=== PATIENT | male | born 1970 | race Caucasian/White ===

== ENCOUNTER 2017-07-30 18:49 | Observation (INO) | payer SELFPAY ==
[~2017-07-30] VITALS: Ht 180.3 cm; Wt 132.0 kg
[2017-07-30 18:49] VITALS: BP 174/102; PULSE 105; RESP 20; TEMP 99; O2SAT 96
[2017-07-30] MEDS ORDERED: SODIUM CHLOR 0.9% 1000 ML INJ 1,000 ML IV SCH (20:43)
[2017-07-30] MEDS ORDERED: KETOROLAC TROMETHAMINE 30 MG/ML (IVP) VIAL IV PUSH ONE (20:45)
[2017-07-30] MEDS ORDERED: VANCOMYCIN INJ 1,000 MG in SODIUM CHLOR 0.9% 250 ML INJ 250 ML IV ONE (20:45)
[2017-07-30] MEDS ORDERED: TETANUS/DIPHTHERIA TOXOID ADULT 0.5 ML VIAL IM ONE (20:45)
[2017-07-30 21:00] VITALS: BP 138/78; PULSE 92; RESP 20; O2SAT 93
--- NOTE | 2017-07-30 21:36 | PD ---
HPI Chief Complaint: Skin Problem Time Seen by Provider: 21:32 Travel History International Travel<30 days: No Contact w/Intl Traveler<30days: No Traveled to known affect area: No History of Present Illness HPI 46-year-old male that presents to the ED for evaluation of left arm infection. Patient states that he has a history of IV drug abuse and last used about a week ago. Per patient he does not believe that this is the cause of it. Per patient he was messing with a scab that he had on his elbow and he noted the swelling symptoms. He did not inject in that arm. He last injected eyes. He states having some burning sensation to the arm. He does have a history of MRSA. He denies any chest pain or shortness of breath. Some subjective fevers and chills. No sweats. Patient does have a history of diabetes and states that his blood sugar has been elevated. He usually takes metformin. He has no allergies to medication. Hasn't seen anybody for this. Per patient pain is 5 out of 10. Mainly to the left elbow. Patient concerned about infection. Able to move the elbow completely. No numbness, tilling, weakness. Going on for about 7 days. PFSH Past Medical History Diabetes: Yes Patient Takes Glucophage: No Tetanus Vaccination: < 5 Years Influenza Vaccination: Yes Past Surgical History Surgical History: No Previous Surgery Social History Alcohol Use: No Tobacco Use: Yes (2 PPD) Substance Use: No Allergies-Medications (Allergen,Severity, Reaction): Coded Allergies: No Known Allergies (Unverified , 07/30/17) Review of Systems Except as stated in HPI: all other systems reviewed are Neg Physical Exam Narrative GENERAL: SKIN: Warm and dry. HEAD: Atraumatic. Normocephalic. EYES: Pupils equal and round. No scleral icterus. No injection or drainage. ENT: No nasal bleeding or discharge. Mucous membranes pink and moist. Tongue is midline. No uvula deviation. NECK: Trachea midline. No JVD. CARDIOVASCULAR: Regular rate and rhythm. No murmurs, S3, S4. RESPIRATORY: No accessory muscle use. Clear to auscultation. Breath sounds equal bilaterally. GASTROINTESTINAL: Abdomen soft, non-tender, nondistended. Hepatic and splenic margins not palpable. MUSCULOSKELETAL: Extremities without clubbing, cyanosis, or edema. No obvious deformities. Full range of motion of the upper and lower extremities bilaterally. Patient does have an erythematous area of the skin on the medial aspect of the left elbow. Erythema noted. Most of the mid forearm. Also going up into the biceps but minimal in this area. 2+ pulses bilaterally. Neurovascular intact. Warm to the touch. No obvious lymphadenopathy. NEUROLOGICAL: Awake and alert. No obvious cranial nerve deficits. Motor grossly within normal limits. Five out of 5 muscle strength in the arms and legs. Normal speech. PSYCHIATRIC: Appropriate mood and affect; insight and judgment normal. Data Data Last Documented VS Vital Signs Date Time Temp Pulse Resp B/P (MAP) Pulse Ox O2 Delivery O2 Flow Rate FiO2 07/30/17 21:00 92 20 138/78 (98) 93 Room Air 07/30/17 18:49 99.0 Orders Orders Complete Blood Count With Diff (07/30/17 20:37) Basic Metabolic Panel (Bmp) (07/30/17 20:37) Blood Culture (07/30/17 20:37) C-Reactive Protein (Crp) (07/30/17 20:37) Magnesium (Mg) (07/30/17 20:37) Iv Access Insert/Monitor (07/30/17 20:37) Vancomycin Inj (Vancomycin Inj) (07/30/17 20:45) Vascular Access Team Consult/P PRN (07/30/17 20:37) Vascular Poc Ultrasound (07/30/17 ) Elbow, Complete (4 Vws) (07/30/17 ) Ketorolac Inj (Toradol Inj) (07/30/17 20:45) Sodium Chlor 0.9% 1000 Ml Inj (Ns 1000 M (07/30/17 20:43) Tetanus/Diphtheria Tox Adult (Tetanus/Di (07/30/17 20:45) Piperacil-Tazo 3.375 Gm Premix (Zosyn 3. (07/30/17 22:30) Admit Order (Ed Use Only) (07/30/17 22:30) Place In Observation (07/30/17 ) Vital Signs (Adult) Q4H (07/30/17 22:28) Activity Oob Ad Michelel (07/30/17 22:28) Bedside Glucose JACINDA.CSUGAR (07/30/17 22:28) Diet Regular Basic (07/31/17 Breakfast) Sodium Chloride 0.9% Flush (Ns Flush) (07/30/17 22:30) Sodium Chloride 0.9% Flush (Ns Flush) (07/31/17 09:00) Acetaminophen (Tylenol) (07/30/17 22:30) Ondansetron Inj (Zofran Inj) (07/30/17 22:30) Basic Metabolic Panel (Bmp) (07/31/17 06:00) Complete Blood Count With Diff (07/31/17 06:00) Case Management Consult (07/30/17 22:28) Scd Bilateral/Knee High JACINDA.BID (07/30/17 22:28) Naloxone Inj (Narcan Inj) (07/30/17 22:30) Docusate Sodium-Senna (Maggi-Colace) (07/31/17 09:00) Magnesium Hydroxide Liq (Milk Of Magnesi (07/30/17 22:30) Sennosides (Senokot) (07/30/17 22:30) Bisacodyl Supp (Dulcolax Supp) (07/30/17 22:30) Lactulose Liq (Lactulose Liq) (07/30/17 22:30) Blood Glucose Goal (Criteria) (07/30/17 22:28) Hypoglycemia 70 Mg/Dl Or < (07/30/17 22:28) Notify Dr: Other (07/30/17 22:28) Dextrose 50% In Niko (Vial) Inj (D50w (Vi (07/30/17 22:30) Glucagon Inj (Glucagon Inj) (07/30/17 22:30) Insulin Aspart Supplemtl Scale (Novolog (07/31/17 08:00) Piperacil-Tazo 3.375 Gm Premix (Zosyn 3. (07/31/17 04:30) Vancomycin Consult Pharmacy (Vancomycin (07/30/17 22:30) Vancomycin Inj (Vancomycin Inj) (07/31/17 09:00) Labs Laboratory Tests Test 07/30/17 21:13 White Blood Count 13.7 TH/MM3 Red Blood Count 4.60 MIL/MM3 Hemoglobin 14.1 GM/DL Hematocrit 40.2 % Mean Corpuscular Volume 87.4 FL Mean Corpuscular Hemoglobin 30.6 PG Mean Corpuscular Hemoglobin Concent 35.0 % Red Cell Distribution Width 13.0 % Platelet Count 183 TH/MM3 Mean Platelet Volume 8.6 FL Neutrophils (%) (Auto) 69.2 % Lymphocytes (%) (Auto) 17.5 % Monocytes (%) (Auto) 11.2 % Eosinophils (%) (Auto) 1.5 % Basophils (%) (Auto) 0.6 % Neutrophils # (Auto) 9.5 TH/MM3 Lymphocytes # (Auto) 2.4 TH/MM3 Monocytes # (Auto) 1.5 TH/MM3 Eosinophils # (Auto) 0.2 TH/MM3 Basophils # (Auto) 0.1 TH/MM3 CBC Comment DIFF FINAL Differential Comment Blood Urea Nitrogen 10 MG/DL Creatinine 0.70 MG/DL Random Glucose 220 MG/DL Calcium Level 8.6 MG/DL Magnesium Level 1.8 MG/DL Sodium Level 131 MEQ/L Potassium Level 4.8 MEQ/L Chloride Level 97 MEQ/L Carbon Dioxide Level 31.2 MEQ/L Anion Gap 3 MEQ/L Estimat Glomerular Filtration Rate 120 ML/MIN C-Reactive Protein 17.00 MG/DL MDM Medical Decision Making Medical Screen Exam Complete: Yes Emergency Medical Condition: Yes Medical Record Reviewed: Yes Interpretation(s) CBC & BMP Diagram 07/30/17 21:13 Calcium Level 8.6, Magnesium Level 1.8 CRP 17 Last Impressions Elbow X-Ray 07/30/17 0000 Signed Impressions: Service Date/Time: Sunday, July 30, 2017 20:51 - CONCLUSION: 1. Tiny olecranon spur. 2. Mild soft tissue swelling overlying the olecranon process. 3. No acute fracture, dislocation or elbow joint effusion. Uriel Barlow MD Differential Diagnosis Cellulitis versus erysipelas versus IVDA Narrative Course 46-year-old male that presents to the ED that presents to the ED for evaluation of possible left leg infection. Patient was properly examined and was found to have signs and symptoms which appear to be consistent with tonsillitis. Patient has a history of IV drug abuse. Labs and imaging were ordered. Patient was started on IV antibiotics to cover for MRSA. Labs and imaging showed what appears to be cellulitis. Patient is a banana grossly, and CRP. This time and do recommend admission for IV antibiotics. Patient agrees with this. Case was discussed with Dr. Chang who agrees with plan. Dr Garg agreed to obs admission. Diagnosis Primary Impression: Cellulitis Qualified Codes: L03.114 - Cellulitis of left upper limb Additional Impression: Diabetes Qualified Codes: E11.9 - Type 2 diabetes mellitus without complications; Z79.4 - [facility] (current) use of insulin Admitting Information Admitting Physician Requests: Alon Santo Jul 30, 2017 21:36
--- NOTE | 2017-07-30 21:37 | RADRPT ---
EXAM DATE/TIME: 07/30/2017 20:51 [facility] COMPARISON: No previous studies available for comparison. INDICATIONS : Pain and inflammation in elbow for one week. MEDICAL HISTORY : None. SURGICAL HISTORY : None. ENCOUNTER: Initial ACUITY: 1 week PAIN SCORE: 7/10 LOCATION: Left elbow. FINDINGS: No acute fracture or dislocation. No elbow joint effusion is noted. Tiny olecranon spur is noted. Mil d soft tissue swelling overlying the olecranon process is noted. CONCLUSION: 1. Tiny olecranon spur. 2. Mild soft tissue swelling overlying the olecranon process. 3. No acute fracture, dislocation or elbow joint effusion. Uriel Barlow MD on July 30, 2017 at 21:35 Board Certified Radiologist. This report was verified electronically.
[2017-07-30 22:03] LABS: AUTOMATED NEUTROPHIL # 9.5 TH/MM3 (1.8-7.7); BASOPHIL # 0.1 TH/MM3 (0-0.2); BASOPHIL % 0.6 % (0.0-2.0); EOSINOPHIL # 0.2 TH/MM3 (0-0.4); EOSINOPHIL % 1.5 % (0.0-4.0); HEMATOCRIT 40.2 % (39.0-51.0); HEMO FLAGS DIFF FINAL; LYMPH % 17.5 % (9.0-44.0); LYMPHOCYTE # 2.4 TH/MM3 (1.0-4.8); MEAN CELL VOLUME 87.4 FL (80.0-100.0); MEAN CORPUSCULAR HEMOGLOBIN 30.6 PG (27.0-34.0); MONO % 11.2 % (0.0-8.0); NEUT % 69.2 % (16.0-70.0); PLATELET COUNT 183 TH/MM3 (150-450); WHITE BLOOD COUNT 13.7 TH/MM3 (4.0-11.0)
[2017-07-30 22:19] LABS: BICARBONATE 31.2 MEQ/L (21.0-32.0); MAGNESIUM 1.8 MG/DL (1.5-2.5); POTASSIUM 4.8 MEQ/L (3.5-5.1)
[2017-07-30] MEDS ORDERED: ACETAMINOPHEN 325 MG TAB PO PRN (22:30)
[2017-07-30] MEDS ORDERED: ONDANSETRON HCL 4 MG/2 ML VIAL IVP PRN (22:30)
[2017-07-30] MEDS ORDERED: PIPERACIL-TAZO 3.375 GM PREMIX 50 ML IV ONE (22:30)
[2017-07-30] MEDS ORDERED: LACTULOSE SYRUP 20 GM/30 ML CUP PO PRN (22:30)
[2017-07-30] MEDS ORDERED: NALOXONE HCL 0.4 MG/ML AMP IV PUSH PRN (22:30)
[2017-07-30] MEDS ORDERED: GLUCAGON 1 MG/ML VIAL OTHER PRN (22:30)
[2017-07-30] MEDS ORDERED: SODIUM CHLORIDE 0.9% FLUSH 10 ML FLUSH IV FLUSH PRN (22:30)
[2017-07-30] MEDS ORDERED: MAGNESIUM HYDROXIDE SUSP 30 ML CUP PO PRN (22:30)
[2017-07-30] MEDS ORDERED: SENNOSIDES 8.6 MG TAB PO PRN (22:30)
[2017-07-30] MEDS ORDERED: BISACODYL 10 MG SUPP RECTAL PRN (22:30)
[2017-07-30] MEDS ORDERED: Vancomycin Consult Pharmacy 1 EA OTHER SCH (22:30)
[2017-07-30] MEDS ORDERED: DEXTROSE 50% IN WATER 50 ML VIAL(D50) IV PUSH PRN (22:30)
[2017-07-30 22:45] VITALS: BP 130/79; PULSE 91; RESP 20; O2SAT 96
[2017-07-30 23:34] VITALS: BP 115/73
[2017-07-30 23:46] VITALS: BP 113/60; PULSE 82; RESP 18; TEMP 98.4; O2SAT 94
[2017-07-31] MEDS ORDERED: VANCOMYCIN INJ 1,400 MG in SODIUM CHLORID 0.9% 500 ML INJ 500 ML IV SCH ×2
[2017-07-31 03:53] VITALS: BP 115/62; PULSE 79; RESP 17; TEMP 98.4; O2SAT 95
[2017-07-31] MEDS: PIPERACIL-TAZO 3.375 GM PREMIX 50 ML IV SCH ×4 (04:12→22:39)
--- NOTE | 2017-07-31 05:43 | HHI.HP ---
HPI Service [facility] Primary Care Physician No Primary Care Physician Admission Diagnosis acute cellulitis, diabetic, IVDA Diagnoses: Travel History International Travel<30 Days: No Contact w/Intl Traveler <30 Da: No Traveled to Known Affected Are: No History of Present Illness 46-year-old male with a past medical history significant for IV drug abuse and type 2 diabetes mellitus presents with a one-week history of left arm cellulitis. The patient reports that his left elbow became erythematous and swollen approximately 1 week ago. The swelling, erythema and pain continued to worsen. He endorses subjective fever/chills. He states he last used IV drugs approximately one week ago. He states he does not think the infection is from his IV drug use. He reports he had a scab on his elbow that he picked off and the infection is stemming from there. WBC 13.7. CRP 17. Afebrile. Tachycardic and hypertensive on arrival to the emergency department however this has resolved. X-ray of the left elbow showed mild soft tissue swelling overlying the olecranon process. Review of Systems Positive fever/chills Denies blurry vision, otorrhea, rhinorrhea Denies sore throat and cough No chest pain, palpitations, shortness of breath No abdominal pain Denies constipation/diarrhea/nausea/vomiting Denies muscle pain/weakness No rashes Past Family Social History Past Medical History Type 2 diabetes mellitus IV drug abuse Past Surgical History None Reported Medications Metformin Allergies: Coded Allergies: No Known Allergies (Unverified , 07/30/17) Family History Maternal grandfather with diabetes mellitus. Social History Smokes 1-1/2 packs per day 30 years. Denies alcohol. Uses marijuana 1-2 times per week. Denies other illicit drug use upon questioning. However, the patient admitted to IV drug use in the ED. Physical Exam Vital Signs Vital Signs Date Time Temp Pulse Resp B/P (MAP) Pulse Ox O2 Delivery O2 Flow Rate FiO2 07/31/17 03:53 98.4 79 17 115/62 (79) 95 07/30/17 23:46 98.4 82 18 113/60 (77) 94 07/30/17 23:34 93 20 115/73 (87) 96 07/30/17 22:45 91 20 130/79 (96) 96 Room Air 07/30/17 21:00 92 20 138/78 (98) 93 Room Air 07/30/17 18:49 99.0 105 20 174/102 (126) 96 Room Air Physical Exam GENERAL: Obese, male lying in bed SKIN: No rashes, ecchymoses or lesions. Cool and dry. HEAD: Atraumatic. Normocephalic. No temporal or scalp tenderness. EYES: Pupils equal round and reactive. Extraocular motions intact. No scleral icterus. No injection or drainage. ENT: Nose without bleeding, purulent drainage or septal hematoma. Throat without erythema, tonsillar hypertrophy or exudate. Uvula midline. Airway patent. NECK: Trachea midline. No JVD or lymphadenopathy. Supple, nontender, no meningeal signs. CARDIOVASCULAR: Regular rate and rhythm without murmurs, gallops, or rubs. RESPIRATORY: Clear to auscultation. Breath sounds equal bilaterally. No wheezes , rales, or rhonchi. GASTROINTESTINAL: Abdomen soft, non-tender, nondistended. No hepato-splenomegaly , or palpable masses. No guarding. MUSCULOSKELETAL: Extremities without clubbing, cyanosis, or edema. No calf tenderness. Erythema and edema surrounding left elbow that extends to the hand and mid bicep. No areas of fluctuance or induration. Full range of motion of left elbow and left hand. NEUROLOGICAL: Awake and alert. Cranial nerves II through XII intact. Motor and sensory grossly within normal limits. Normal speech. Laboratory Laboratory Tests Test 07/30/17 21:13 White Blood Count 13.7 Red Blood Count 4.60 Hemoglobin 14.1 Hematocrit 40.2 Mean Corpuscular Volume 87.4 Mean Corpuscular Hemoglobin 30.6 Mean Corpuscular Hemoglobin Concent 35.0 Red Cell Distribution Width 13.0 Platelet Count 183 Mean Platelet Volume 8.6 Neutrophils (%) (Auto) 69.2 Lymphocytes (%) (Auto) 17.5 Monocytes (%) (Auto) 11.2 Eosinophils (%) (Auto) 1.5 Basophils (%) (Auto) 0.6 Neutrophils # (Auto) 9.5 Lymphocytes # (Auto) 2.4 Monocytes # (Auto) 1.5 Eosinophils # (Auto) 0.2 Basophils # (Auto) 0.1 CBC Comment DIFF FINAL Differential Comment Blood Urea Nitrogen 10 Creatinine 0.70 Random Glucose 220 Calcium Level 8.6 Magnesium Level 1.8 Sodium Level 131 Potassium Level 4.8 Chloride Level 97 Carbon Dioxide Level 31.2 Anion Gap 3 Estimat Glomerular Filtration Rate 120 C-Reactive Protein 17.00 Date/Time Source Procedure Growth Status 07/30/17 21:48 Blood Peripheral Aerobic Blood Culture Pending Received 07/30/17 21:48 Blood Peripheral Anaerobic Blood Culture Pending Received Result Diagram: 07/30/17211207/30/172112 Caprini VTE Risk Assessment Caprini VTE Risk Assessment: No/Low Risk (score <= 1) Caprini Risk Assessment Model Point Value = 1 Point Value = 2 Point Value = 3 Point Value = 5 Age 41-60 Minor surgery BMI > 25 kg/m2 Swollen legs Varicose veins or History of unexplained or recurrent spontaneous Oral contraceptives or hormone replacement Sepsis (< 1 month) Serious lung disease, including pneumonia (< 1 month) Abnormal pulmonary function Acute myocardial infarction Congestive heart failure (< 1 month) History of inflammatory bowel disease Medical patient at bed rest Age 61-74 Arthroscopic surgery Major open surgery (> 45 min) Laparoscopic surgery (> 45 min) Malignancy Confined to bed (> 72 hours) Immobilizing plaster cast Central venous access Age >= 75 History of VTE Family history of VTE Factor V Leiden Prothrombin [id number] Lupus anticoagulant Anticardiolipin antibodies Elevated serum homocysteine Heparin-induced thrombocytopenia Other congenital or acquired thrombophilia Stroke (< 1 month) Elective arthroplasty Hip, pelvis, or leg fracture Acute spinal cord injury (< 1 month) Prophylaxis Regimen Total Risk Factor Score Risk Level Prophylaxis Regimen 0-1 Low Early ambulation 2 Moderate Order ONE of the following: *Sequential Compression Device (SCD) *Heparin 5000 units SQ BID 3-4 Higher Order ONE of the following medications: *Heparin 5000 units SQ TID *Enoxaparin/Lovenox 40 mg SQ daily (WT < 150 kg, CrCl > 30 mL/min) *Enoxaparin/Lovenox 30 mg SQ daily (WT < 150 kg, CrCl > 10-29 mL/min) *Enoxaparin/Lovenox 30 mg SQ BID (WT < 150 kg, CrCl > 30 mL/min) AND/OR *Sequential Compression Device (SCD) 5 or more Highest Order ONE of the following medications: *Heparin 5000 units SQ TID (Preferred with Epidurals) *Enoxaparin/Lovenox 40 mg SQ daily (WT < 150 kg, CrCl > 30 mL/min) *Enoxaparin/Lovenox 30 mg SQ daily (WT < 150 kg, CrCl > 10-29 mL/min) *Enoxaparin/Lovenox 30 mg SQ BID (WT < 150 kg, CrCl > 30 mL/min) AND *Sequential Compression Device (SCD) Assessment and Plan Assessment and Plan Assessment/plan: 1. Left elbow cellulitis X-ray showed mild soft tissue swelling overlying the olecranon process WBC 13.7, CRP 17 Patient with history of MRSA Blood cultures pending Vancomycin/Zosyn Anticipate transition to by mouth antibiotics in next 1-2 days 2. IV drug abuse Patient denied IV drug use during her interview however admitted to use 1 week ago in the ED UDS pending 3. Type 2 diabetes mellitus Holding home metformin SSI A1c pending FEN Regular diet Electrolytes: monitor and replete prn SCDs Case discussed with ER physician at length Fatemeh Garg MD Jul 31, 2017 05:43
[2017-07-31 07:40] VITALS: BP 119/66; PULSE 89; RESP 20; TEMP 98.1; O2SAT 92
[2017-07-31 07:47] LABS: AUTOMATED NEUTROPHIL # 8.4 TH/MM3 (1.8-7.7); BASOPHIL % 0.4 % (0.0-2.0); EOSINOPHIL # 0.2 TH/MM3 (0-0.4); EOSINOPHIL % 1.4 % (0.0-4.0); HEMO FLAGS DIFF FINAL; LYMPH % 14.5 % (9.0-44.0); LYMPHOCYTE # 1.7 TH/MM3 (1.0-4.8); MEAN CELL VOLUME 87.6 FL (80.0-100.0); MEAN CORPUSCULAR HEMOGLOBIN 30.5 PG (27.0-34.0); MEAN CORPUSCULAR HGB CONC 34.8 % (32.0-36.0); NEUT % 71.7 % (16.0-70.0); PLATELET COUNT 173 TH/MM3 (150-450); RED BLOOD COUNT 4.34 MIL/MM3 (4.50-5.90); RED CELL DISTRIBUTION WIDTH 12.8 % (11.6-17.2); WHITE BLOOD COUNT 11.7 TH/MM3 (4.0-11.0)
[2017-07-31 08:17] LABS: BICARBONATE 28.5 MEQ/L (21.0-32.0); POTASSIUM 3.9 MEQ/L (3.5-5.1)
[2017-07-31] MEDS: INSULIN ASPART SUPPLEMENTAL SCALE SQ SCH ×4 (08:25→22:38)
[2017-07-31] MEDS: DOCUSATE SODIUM 50 MG/SENNA 8.6 MG TAB PO SCH ×2 (08:25→22:39)
[2017-07-31] MEDS: SODIUM CHLORIDE 0.9% FLUSH 10 ML FLUSH IV FLUSH SCH ×2 (08:25→19:30)
[2017-07-31 11:29] VITALS: BP 126/70; PULSE 93; RESP 20; TEMP 98.2; O2SAT 93
[2017-07-31 12:46] LABS: HEMOGLOBIN A1a 1.5 %; HEMOGLOBIN F 1.4 %; HEMOGLOBIN LA1C 2.6 %; HEMOGLOBIN P3 4.5 %
[2017-07-31] MEDS: VANCOMYCIN 1,500 MG/NS 500 ML IV SCH ×2 (13:25)
[2017-07-31 15:40] VITALS: BP 122/71; PULSE 85; RESP 20; TEMP 98.5; O2SAT 95
[2017-07-31 20:34] VITALS: BP 120/79; PULSE 91; RESP 18; TEMP 100.2; O2SAT 95
[2017-07-31] MEDS: INSULIN DETEMIR 100 UNITS/ML VIAL SQ SCH (22:38)
[2017-07-31 23:33] VITALS: BP 121/70; PULSE 86; RESP 17; TEMP 99; O2SAT 94
[2017-08-01] MEDS: VANCOMYCIN 1,500 MG/NS 500 ML IV SCH ×4 (02:00→13:57)
[2017-08-01 03:26] VITALS: BP 126/73; PULSE 83; RESP 17; TEMP 99.9; O2SAT 95
[2017-08-01] MEDS: PIPERACIL-TAZO 3.375 GM PREMIX 50 ML IV SCH ×4 (05:38→22:46)
[2017-08-01 07:45] VITALS: BP 125/70; PULSE 78; RESP 18; TEMP 98.2; O2SAT 94
[2017-08-01] MEDS: INSULIN ASPART SUPPLEMENTAL SCALE SQ SCH ×4 (08:50→21:04)
[2017-08-01] MEDS: DOCUSATE SODIUM 50 MG/SENNA 8.6 MG TAB PO SCH ×2 (08:51→21:00)
[2017-08-01] MEDS: SODIUM CHLORIDE 0.9% FLUSH 10 ML FLUSH IV FLUSH SCH ×2 (08:51→21:05)
[2017-08-01 11:50] VITALS: BP 126/73; PULSE 82; RESP 20; TEMP 97.8; O2SAT 95
--- NOTE | 2017-08-01 11:55 | HHI.PR ---
Subjective Remarks The patient was resting comfortably in bed. He still had pain in the left elbow but he said that it was slightly better. He also said that the swelling was slightly better. 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 Objective Vitals Vital Signs Date Time Temp Pulse Resp B/P (MAP) Pulse Ox O2 Delivery O2 Flow Rate FiO2 08/01/17 07:45 98.2 78 18 125/70 (88) 94 08/01/17 03:26 99.9 83 17 126/73 (90) 95 07/31/17 23:33 99.0 86 17 121/70 (87) 94 07/31/17 20:34 100.2 91 18 120/79 (93) 95 07/31/17 15:40 98.5 85 20 122/71 (88) 95 I/O 07/31/17 07/31/17 07/31/17 08/01/17 08/01/17 08/01/17 07:00 15:00 23:00 07:00 15:00 23:00 Intake Total 800 ml 100 ml 765 ml 50 ml Balance 800 ml 100 ml 765 ml 50 ml Intake Oral 250 ml IV Total 550 ml 100 ml 765 ml 50 ml # Voids 1 2 Result Diagram: 07/31/1730 07/31/17 0630 Imaging Last Impressions Elbow X-Ray 07/30/17 0000 Signed Impressions: Service Date/Time: Sunday, July 30, 2017 20:51 - CONCLUSION: 1. Tiny olecranon spur. 2. Mild soft tissue swelling overlying the olecranon process. 3. No acute fracture, dislocation or elbow joint effusion. Uriel Barlow MD Objective Remarks GENERAL: Obese male lying in bed in [facility]. SKIN: Erythema and warmth overlying left elbow. HEAD: Atraumatic. Normocephalic. No temporal or scalp tenderness. EYES: Pupils equal round and reactive. Extraocular motions intact. No scleral icterus. No injection or drainage. ENT: Nose without bleeding, purulent drainage or septal hematoma. Throat without erythema, tonsillar hypertrophy or exudate. Uvula midline. Airway patent. NECK: Trachea midline. No JVD or lymphadenopathy. Supple, nontender, no meningeal signs. CARDIOVASCULAR: Regular rate and rhythm without murmurs, gallops, or rubs. RESPIRATORY: Clear to auscultation. Breath sounds equal bilaterally. No wheezes , rales, or rhonchi. GASTROINTESTINAL: Abdomen soft, non-tender, nondistended. No hepato-splenomegaly , or palpable masses. No guarding. MUSCULOSKELETAL: Extremities without clubbing, cyanosis, or edema. Erythema and edema surrounding left elbow that extends to the hand and mid bicep. No areas of fluctuance or induration. Full range of motion of left elbow and left hand. NEUROLOGICAL: Awake and alert. Cranial nerves II through XII intact. Motor and sensory grossly within normal limits. Normal speech. Medications and IVs Current Medications Medications (Trade) Dose Ordered Sig/Roseanne Route Start Time Stop Time Status Last Admin (NS Flush) 2 ml UNSCH PRN IV FLUSH 07/30/17 22:30 (NS Flush) 2 ml BID IV FLUSH 07/31/17 09:00 08/01/17 08:51 (Tylenol) 650 mg Q4H PRN PO 07/30/17 22:30 (Zofran Inj) 4 mg Q6H PRN IVP 07/30/17 22:30 (Narcan Inj) 0.4 mg UNSCH PRN IV PUSH 07/30/17 22:30 (Maggi-Colace) 1 tab BID PO 07/31/17 09:00 08/01/17 08:51 (Milk Of Magnesia Liq) 30 ml Q12H PRN PO 07/30/17 22:30 (Senokot) 17.2 mg Q12H PRN PO 07/30/17 22:30 (Dulcolax Supp) 10 mg DAILY PRN RECTAL 07/30/17 22:30 (Lactulose Liq) 30 ml DAILY PRN PO 07/30/17 22:30 (D50w (Vial) Inj) 50 ml UNSCH PRN IV PUSH 07/30/17 22:30 (Glucagon Inj) 1 mg UNSCH PRN OTHER 07/30/17 22:30 (NovoLOG SUPPLEMENTAL SCALE) 1 ACHS SLIDING SCALE SQ 07/31/17 08:00 08/01/17 08:50 Pharmacy Profile Note 0 ml @ 0 mls/hr UNSCH OTHER 07/30/17 22:30 Miscellaneous Information SPECIFIC LAB TO BE DRAWN:VANCO DATE TO... ONCE ONCE .XX 08/01/17 13:45 08/01/17 13:46 Vancomycin HCl 1500 mg/Sodium Chloride 515 ml @ 257.5 mls/ hr Q12H IV 07/31/17 14:00 08/01/17 02:00 Piperacillin Sod/ Tazobactam Sod 50 ml @ 100 mls/hr Q6H IV 07/31/17 16:00 08/01/17 10:16 (Levemir Inj) 15 units HS SQ 07/31/17 21:00 07/31/17 22:38 A/P Assessment and Plan Left elbow cellulitis X-ray showed mild soft tissue swelling overlying the olecranon process. WBC 13.7 , CRP 17. Patient with history of MRSA. - Blood cultures pending. NGTD. - continue IV vancomycin/Zosyn. - pain control as needed with a bowel regimen. IV drug abuse Patient admitted to use 1 week ago in the ED. UDS positive for amphetamines. - cessation instruction. Type 2 diabetes mellitus A1c over 10%. - Holding home metformin. - continue Levemir 15 units HS and SSI. PPx: SCDs Discharge Planning Anticipate d/c on PO antibiotics in [place] Brandon DO Aug 01, 2017 11:55
[2017-08-01] MEDS ORDERED: PHARMACY ORDERED LAB ONE (13:45)
[2017-08-01 15:15] VITALS: BP 145/85; PULSE 80; RESP 20; TEMP 98.2; O2SAT 97
[2017-08-01 15:17] LABS: AUTOMATED NEUTROPHIL # 7.3 TH/MM3 (1.8-7.7); BASOPHIL # 0.1 TH/MM3 (0-0.2); BASOPHIL % 0.6 % (0.0-2.0); EOSINOPHIL # 0.2 TH/MM3 (0-0.4); EOSINOPHIL % 1.8 % (0.0-4.0); HEMATOCRIT 41.4 % (39.0-51.0); HEMO FLAGS DIFF FINAL; LYMPH % 15.6 % (9.0-44.0); LYMPHOCYTE # 1.6 TH/MM3 (1.0-4.8); MEAN CELL VOLUME 88.6 FL (80.0-100.0); MEAN CORPUSCULAR HEMOGLOBIN 30.3 PG (27.0-34.0); MEAN CORPUSCULAR HGB CONC 34.2 % (32.0-36.0); MONO % 10.7 % (0.0-8.0); NEUT % 71.3 % (16.0-70.0); PLATELET COUNT 211 TH/MM3 (150-450); RED BLOOD COUNT 4.68 MIL/MM3 (4.50-5.90); RED CELL DISTRIBUTION WIDTH 12.8 % (11.6-17.2); WHITE BLOOD COUNT 10.2 TH/MM3 (4.0-11.0)
[2017-08-01 19:47] VITALS: BP 139/77; PULSE 94; RESP 16; TEMP 98.7; O2SAT 96
[2017-08-01] MEDS: INSULIN DETEMIR 100 UNITS/ML VIAL SQ SCH (21:04)
[2017-08-01 23:05] VITALS: BP 112/60; PULSE 75; RESP 17; TEMP 98.4; O2SAT 95
[2017-08-02] MEDS: VANCOMYCIN 1,500 MG/NS 500 ML IV SCH ×6 (02:58→15:37)
[2017-08-02 03:15] VITALS: BP 126/83; PULSE 76; RESP 18; TEMP 98.5; O2SAT 96
[2017-08-02] MEDS: PIPERACIL-TAZO 3.375 GM PREMIX 50 ML IV SCH ×4 (06:05→21:58)
[2017-08-02 07:42] VITALS: BP 131/84; PULSE 78; RESP 18; TEMP 97.7; O2SAT 94
[2017-08-02] MEDS: INSULIN ASPART SUPPLEMENTAL SCALE SQ SCH ×4 (08:00→22:27)
[2017-08-02] MEDS: DOCUSATE SODIUM 50 MG/SENNA 8.6 MG TAB PO SCH ×2 (10:37→21:59)
[2017-08-02] MEDS: SODIUM CHLORIDE 0.9% FLUSH 10 ML FLUSH IV FLUSH SCH ×2 (10:37→21:59)
[2017-08-02 11:13] VITALS: BP 126/60; PULSE 76; RESP 18; TEMP 99; O2SAT 92
--- NOTE | 2017-08-02 11:29 | HHI.PR ---
Subjective Remarks The patient was frustrated that he could not charge his phone. He said that overall the pain and redness has improved. He still feels his arm is swollen and hot to the touch. No other acute complaints. Discussed with nursing. Objective Vitals Vital Signs Date Time Temp Pulse Resp B/P (MAP) Pulse Ox O2 Delivery O2 Flow Rate FiO2 08/02/17 11:13 99.0 76 18 126/60 (82) 92 08/02/17 07:42 97.7 78 18 131/84 (100) 94 08/02/17 03:15 98.5 76 18 126/83 (97) 96 08/01/17 23:05 98.4 75 17 112/60 (77) 95 08/01/17 19:47 98.7 94 16 139/77 (97) 96 08/01/17 15:15 98.2 80 20 145/85 (105) 97 08/01/17 11:50 97.8 82 20 126/73 (90) 95 I/O 08/01/17 08/01/17 08/01/17 08/02/17 08/02/17 08/02/17 07:00 15:00 23:00 07:00 15:00 23:00 Intake Total 50 ml 565 ml Balance 50 ml 565 ml IV Total 50 ml 565 ml # Voids 1 Result Diagram: 08/01/17 1424 07/31/17 0630 Imaging Last Impressions Elbow X-Ray 07/30/17 0000 Signed Impressions: Service Date/Time: Sunday, July 30, 2017 20:51 - CONCLUSION: 1. Tiny olecranon spur. 2. Mild soft tissue swelling overlying the olecranon process. 3. No acute fracture, dislocation or elbow joint effusion. Uriel Barlow MD Objective Remarks GENERAL: Obese male lying in bed in NAD. SKIN: Erythema and warmth overlying left elbow. HEAD: Atraumatic. Normocephalic. No temporal or scalp tenderness. EYES: Pupils equal round and reactive. Extraocular motions intact. No scleral icterus. No injection or drainage. ENT: Nose without bleeding, purulent drainage or septal hematoma. Throat without erythema, tonsillar hypertrophy or exudate. Uvula midline. Airway patent. NECK: Trachea midline. No JVD or lymphadenopathy. Supple, nontender, no meningeal signs. CARDIOVASCULAR: Regular rate and rhythm without murmurs, gallops, or rubs. RESPIRATORY: Clear to auscultation. Breath sounds equal bilaterally. No wheezes , rales, or rhonchi. GASTROINTESTINAL: Abdomen soft, non-tender, nondistended. No hepato-splenomegaly , or palpable masses. No guarding. MUSCULOSKELETAL: Extremities without clubbing, cyanosis, or edema. Edema surrounding the left elbow that extends to the hand and mid bicep, warm to the touch, erythema improving. No areas of fluctuance or induration. Full range of motion of left elbow and left hand. NEUROLOGICAL: Awake and alert. Cranial nerves II through XII intact. Motor and sensory grossly within normal limits. Normal speech. PSYCH: Mood and affect appropriate. Medications and IVs Current Medications Medications (Trade) Dose Ordered Sig/Roseanne Route Start Time Stop Time Status Last Admin (NS Flush) 2 ml UNSCH PRN IV FLUSH 07/30/17 22:30 (NS Flush) 2 ml BID IV FLUSH 07/31/17 09:00 08/02/17 10:37 (Tylenol) 650 mg Q4H PRN PO 07/30/17 22:30 08/01/17 19:52 (Zofran Inj) 4 mg Q6H PRN IVP 07/30/17 22:30 (Narcan Inj) 0.4 mg UNSCH PRN IV PUSH 07/30/17 22:30 (Maggi-Colace) 1 tab BID PO 07/31/17 09:00 08/02/17 10:37 (Milk Of Magnesia Liq) 30 ml Q12H PRN PO 07/30/17 22:30 (Senokot) 17.2 mg Q12H PRN PO 07/30/17 22:30 (Dulcolax Supp) 10 mg DAILY PRN RECTAL 07/30/17 22:30 (Lactulose Liq) 30 ml DAILY PRN PO 07/30/17 22:30 (D50w (Vial) Inj) 50 ml UNSCH PRN IV PUSH 07/30/17 22:30 (Glucagon Inj) 1 mg UNSCH PRN OTHER 07/30/17 22:30 (NovoLOG SUPPLEMENTAL SCALE) 1 ACHS SLIDING SCALE SQ 07/31/17 08:00 08/01/17 21:04 Pharmacy Profile Note 0 ml @ 0 mls/hr UNSCH OTHER 07/30/17 22:30 Vancomycin HCl 1500 mg/Sodium Chloride 515 ml @ 257.5 mls/ hr Q12H IV 07/31/17 14:00 08/02/17 02:58 Piperacillin Sod/ Tazobactam Sod 50 ml @ 100 mls/hr Q6H IV 07/31/17 16:00 08/02/17 10:38 (Levemir Inj) 15 units HS SQ 07/31/17 21:00 08/01/17 21:04 A/P Assessment and Plan Left elbow cellulitis X-ray showed mild soft tissue swelling overlying the olecranon process. WBC 13.7 , CRP 17. Patient with history of MRSA. Leukocytosis improved. Still with swelling and pain. - Blood cultures pending. NGTD. - continue IV vancomycin/Zosyn. - start IV Toradol for inflammation and pain. - anticipate d/c on oral antibiotics in the AM. IV drug abuse Patient admitted to use 1 week ago in the ED. UDS positive for amphetamines. - cessation instruction. Type 2 diabetes mellitus A1c over 10%. - Holding home metformin. - continue Levemir 15 units HS and SSI. PPx: SCDs Discharge Planning Anticipate d/c on PO antibiotics in AM if inflammation is improved Alan Gonzalez DO Aug 02, 2017 11:29
[2017-08-02] MEDS: KETOROLAC TROMETHAMINE 30 MG/ML (IVP) VIAL IV PUSH SCH ×2 (13:38→18:51)
[2017-08-02] MEDS ORDERED: PHARMACY ORDERED LAB ONE (13:45)
[2017-08-02 15:32] VITALS: BP 127/85; PULSE 75; RESP 18; TEMP 98.2; O2SAT 95
[2017-08-02 19:11] VITALS: BP 129/79; PULSE 78; RESP 18; O2SAT 95
[2017-08-02] MEDS: INSULIN DETEMIR 100 UNITS/ML VIAL SQ SCH (22:26)
[2017-08-03] MEDS: KETOROLAC TROMETHAMINE 30 MG/ML (IVP) VIAL IV PUSH SCH ×2 (00:49→06:27)
[2017-08-03 01:10] VITALS: BP 117/73; PULSE 78; RESP 18; O2SAT 96
[2017-08-03] MEDS ORDERED: VANCOMYCIN INJ 1,750 MG in SODIUM CHLORID 0.9% 500 ML INJ 500 ML IV SCH (02:00)
[2017-08-03 03:55] VITALS: BP 110/67; PULSE 75; RESP 18; TEMP 97.9; O2SAT 97
[2017-08-03] MEDS: PIPERACIL-TAZO 3.375 GM PREMIX 50 ML IV SCH ×2 (04:00→10:00)
[2017-08-03 07:35] VITALS: BP 120/71; PULSE 74; RESP 18; TEMP 98.1; O2SAT 96
[2017-08-03] MEDS: INSULIN ASPART SUPPLEMENTAL SCALE SQ SCH (08:00)
[2017-08-03] MEDS: DOCUSATE SODIUM 50 MG/SENNA 8.6 MG TAB PO SCH (09:00)
[2017-08-03] MEDS: SODIUM CHLORIDE 0.9% FLUSH 10 ML FLUSH IV FLUSH SCH (09:00)
[2017-08-04] MEDS ORDERED: PHARMACY ORDERED LAB ONE (13:45)
== END 2017-08-03 11:48 | disposition left against medical advice (07) ==
LOC: NEPE 18:49 → NEDA 22:32 → NEPHCDU 23:38
PROVIDERS: ADMIT Hospitalist; ATTEND Hospitalist
DX: L03.114 Cellulitis of left upper limb (principal); E11.9 Type 2 diabetes mellitus without complications; R00.0 Tachycardia, unspecified; F17.200 Nicotine dependence, unspecified, uncomplicated; F12.90 Cannabis use, unspecified, uncomplicated; F19.90 Other psychoactive substance use, unspecified, uncomplicated; Z86.14 Personal history of Methicillin resistant Staphylococcus aureus infection; Z79.4 Long term (current) use of insulin
CPT/HCPCS: 73080; 80048; 80202; 80307; 82948; 83036; 83735; 85025; 86140; 87040; 90471; 90714; 96365; 96366; 96372; 96375; 96376; 99285; G0378; J1815; J1885; J2543; J3370; J7030; J7040; J7050